=== PATIENT | female | born 1980 | race Hispanic/Latino ===

== ENCOUNTER 2024-05-24 20:56 | Emergency (ER) | payer SELFPAY ==
[2024-05-24 21:00] VITALS: BP 136/90; PULSE 71; RESP 18; TEMP 36.5; O2SAT 95
--- NOTE | 2024-05-24 22:20 | ED.VIS.LOWEX ---
HPI History of Present Illness Chief Complaint: Wound Check Detail of Chief Complaint: Injury to right calf Informant: patient Narrative Narrative: Patient presents the emergency department with a puncture wound to the right calf. Patient states that she was doing some cleaning today at home and there was a metal sayda piece that was part of furniture that punctured her right lateral calf this morning. Patient complains of a burning sensation to the area. She believes the sayda metal piece was intact afterwards but it did puncture through her jeans. Patient unsure of last tetanus shot. Patient otherwise has no medical history. History obtained through translator interpreter as patient does not speak [place]. PFSH [facility] Home Medications ?Medication ?Instructions ?Recorded ?Last Taken ?Type cephalexin 500 mg capsule 500 mg PO Q6 #28 CAPSULES 05/24/24 Unknown Rx Allergy/AdvReac Type Severity Reaction Status Date / Time No Known Allergies Allergy Verified 05/24/24 21:00 Social History Smoking Status: Unknown if ever smoked ROS ROS ED Review of Systems ROS Unobtainable: other Constitutional Constitutional ED: Reports lethargy; Denies chills, fever(s), sweats or weight loss Eyes Eyes: Denies blurry vision, change in vision or diplopia ENT ENT ED: Denies rhinorrhea or sore throat Cardiovascular Cardiovascular: Denies chest pain, orthopnea or racing heartbeat Respiratory/Chest Respiratory/Chest: Denies cough, dyspnea, dyspnea on exertion, orthopnea or sputum Gastrointestinal Gastrointestinal: Denies abdominal pain, diarrhea, nausea or vomiting Genitourinary Genitourinary ED: Denies dysuria, hematuria or urinary frequency Musculoskeletal Musculoskeletal: Reports other Details: Puncture wound right lateral calf ; Denies arthralgias, back pain, myalgias or neck pain Integumentary Denies abscess, Abrasions or rash Neurologic Neurologic: Denies headache(s) or weakness Psychiatric Psychiatric: Denies anxiety, depression or suicidal thoughts Endocrine Endocrinology: Denies polydipsia, polyphagia or polyuria Hematologic/Lymphatic Hematologic/Lymphatic: Denies easy bleeding, easy bruising or lymphadenopathy Allergic/Immunologic Allergic/Immunologic ED: Denies mouth swelling, tongue swelling or urticaria EXAM Physical Exam Const Vital Signs: 05/24/24 21:00 Temperature 97.7 F L Temperature Source Temporal Pulse Rate 71 Respiratory Rate 18 Blood Pressure 136/90 H Blood Pressure Mean 105 Pulse Ox 95 Oxygen Delivery Method Room Air Positive well nourished and well developed General Appearance ED: well developed and NAD HEENT Reports TM's clear and moist mucous membranes normocephalic and atraumatic; Negative for trauma or tenderness Tympanic Membrane ED: Yes TM's clear Eyes PERRL and EOMs intact bilaterally General Eye ED: Negative for pale conjunctiva or scleral icterus Neck no lymphadenopathy, supple and no JVD General: Negative for tenderness Chest Wall inspection of chest normal and palpation of chest normal Chest: Negative for tenderness Resp normal respiratory effort and clear to auscultation bilaterally Effort and Inspection: Negative for respiratory distress or pain with movement Auscultation: Negative for rhonchi, wheezes or diminished lung sounds Cardio regular rate, regular rhythm, S1 normal heart sound, S2 normal heart sound and no murmurs Peripheral Pulses: pulses 2+ throughout GI normal to inspection, nondistended, normoactive bowel sounds, soft to palpation, non-tender, non-distended and no masses Back/Spine no CVA tenderness and no thoracic nor lumbar tenderness Extremity Extremity Narrative: Right calf-patient has a small puncture wound measuring approximately 2 cm over the lateral distal third of the calf. No foreign bodies palpated within the wound. There is no active bleeding. She has mild tenderness about the area. No erythema noted. No cellulitic changes. Neurovascularly intact distally. General Extremety ED: Negative for edema General Extremity: Negative for edema Neuro oriented x3, CN's II-XII intact bilaterally, no sensory deficits noted and gait normal Sensorium / Orientation: awake, alert, oriented to person, oriented to place and oriented to time Motor Exam: strength 5/5 throughout and strength abnormal Psych mental status grossly normal Skin no rashes or lesions noted and no wounds MDM MDM MDM Narrative Medical decision making narrative: Patient with a puncture wound to the right lateral calf with rest the piece of metal. Discomfort over the area on exam. X-rays obtained showed no evidence of foreign body. She will receive a tetanus booster. Will empirically start on Keflex. Gave first dose in the emergency department. Advised to follow-up with primary care physician on-call for no doc for wound check in 3 to 5 days. Advised return if increasing pain, redness, swelling, or condition worsening way Radiography Diagnostic Testin view x-rays of the right tib-fib obtained interpreted by myself as no evidence of foreign body or other abnormality. There is no gas in the tissues. Discharge Plan Triage Chief Complaint: Wound Check ED Provider: Steve Francisco Dx/Rx/DC Orders Clinical Impression: Puncture wound of lower leg, right Instructions: ED Puncture Wound (General) Prescriptions: New cephalexin 500 mg capsule 500 mg PO Q6 Qty: 28 0RF Primary Care Provider: Care Physician,No Primary Referrals: Al Mckinney MD [Med Staff - Cloth Worker] - 3-5 Days Care Physician,No Primary [Primary Care Provider] - Print Language: Malay Disposition Disposition: Home, Self Care
--- NOTE | 2024-05-24 22:30 | RAD_ITS ---
EXAM: XR RIGHT TIBIA AND FIBULA, 2 VIEWS CLINICAL INDICATION: injury pain. TECHNIQUE: Frontal and lateral views of the right tibia and fibula. COMPARISON: No relevant prior studies available. FINDINGS: BONES/JOINTS: No significant abnormality. No acute fracture. No subluxation. Normal alignment. Preservation of the joint space. No sclerotic or destructive changes observed. SOFT TISSUES: Mild pretibial soft tissue swelling. No radiopaque foreign body. RAD/Tibia & Fibula 2 Views IMPRESSION: Mild pretibial soft tissue swelling. No acute osseous findings. Electronically Signed: Dick Hess DO at 22:59 EDT ,
[2024-05-24] MEDS: Diphth,Pertuss(Acell),Tet Vac 0.5 ML Vial IM (23:01)
[2024-05-24 23:03] VITALS: BP 130/80; PULSE 70; RESP 18; TEMP 36.6; O2SAT 97
[2024-05-24] MEDS: Cephalexin 250 MG Capsule 500 MG PO (23:08)
== END 2024-05-24 23:16 | disposition home or self-care (01) ==
PROVIDERS: Emergency Provider Emergency Medicine; Visit Provider Emergency Medicine
DX: S81.831A Puncture wound without foreign body, right lower leg, initial encounter (principal); Z23 Encounter for immunization; W26.8XXA Contact with other sharp object(s), not elsewhere classified, initial encounter
CPT/HCPCS: 73590; 90471; 90715; 99282